=== PATIENT | female | born 1955 | race Caucasian/White ===

== ENCOUNTER → 2017-01-17 | Outpatient (CLI) | payer MEDICARE ==
--- NOTE | ~2017-01-17 | MR164 ---
[facility] A Service of [facility] & [facility] RADIOLOGY TEXT RESULTS PATIENT: HEBER WOLF LOCATION: [facility] : 57 UNIT #: [id number] AGE: [address]: Altaf Gu MD SEX: F ORDER DR: [id number] [address] [address] [id number] MR#: [id number] #: [id number] NAME: HEBER WOLF : 1955 SEX: F STUDY DATE/TIME: 01/17/2017 15:57 UNIT: [facility] ROOM: STUDY DESCRIPTION: MR Shoulder Wo Contrast Lt Attending Physician: Altaf Gu M.D. Referring Physician: Altaf Gu M.D. Ordering Physician: Altaf Gu M.D. Primary Care Physician: Primary Care Physician No MRI CENTER REPORT This report is preliminary unless electronic signature is present. EXAM MRI of the left shoulder HISTORY 61-year-old female complains of increasing left shoulder pain, limited range of motion x1 month; clinical concern for rotator cuff tear. Remote history of a fall. COMPARISON Left shoulder films 12/26/2016 TECHNIQUE Multiplanar multiecho imaging of the left shoulder utilizing a high field magnet dedicated protocol. FINDINGS The examination demonstrates glenohumeral joint arthritis. Small osteophyte inferior aspect of the humeral head. Small joint effusion with multiple intraarticular loose bodies within the axillary recess and subscapularis recess anterior shoulder. Bodies measure and up to 1.4 cm and in greatest dimension. These are not readily apparent on the patient's conventional radiograph and apparently represent non ossified loose bodies. The no erosive changes are identified. Cartilage loss noted along the humeral head and off the glenoid. AC joint unremarkable. The rotator cuff demonstrates moderate diffuse supraspinatus tendinopathy with a 4 x 10 mm partial-thickness bursal sided tear of the anterior distal insertion of the supraspinatus tendon. Mild insertional infraspinatus tendinopathy. The teres minor tendon appears intact. The subscapularis tendon also demonstrates mild tendinopathy. No muscle atrophy or edema. Superior labrum, biceps anchor and long tendon of the biceps appears STS. [facility] A Service of [facility] & [facility] RADIOLOGY TEXT RESULTS PATIENT: HEBER WOLF LOCATION: [facility] : 57 UNIT #: [id number] AGE: [address]: Altaf Gu MD SEX: F ORDER DR: intact. Anterior and posterior labrum unremarkable. Extraarticular soft tissues appear normal. IMPRESSION 1. Glenohumeral joint arthritis, which appears to represent osteoarthritis as no definite inflammatory or erosive changes are identified. Patient does demonstrate synovitis with multiple noncalcified intraarticular loose bodies as detailed above. 2. Extensive rotator cuff tendinopathy predominately involving the supraspinatus tendon with moderate tendinopathy and a 4 x 10 mm partial-thickness bursal sided tear of the distal supraspinatus tendon insertion. Mild tendinopathy of the infraspinatus and subscapularis tendons. Dictated by... Yaneth Kilgore M.D. THIS IS AN ELECTRONICALLY VERIFIED REPORT Yaneth Kilgore M.D. at 01/18/2017 5:23 PM DENNIS/denise TD: 01/18/2017 12:13 JOB #: [id number] MRI CENTER REPORT Page 1 of 1
== END | disposition home or self-care (01) ==
LOC: SRAD 15:42
DX: M75.102 Unspecified rotator cuff tear or rupture of left shoulder, not specified as traumatic (principal); M19.012 Primary osteoarthritis, left shoulder; M65.812 Other synovitis and tenosynovitis, left shoulder; M75.82 Other shoulder lesions, left shoulder
CPT/HCPCS: 73221